=== PATIENT | male | born 1990 | race Caucasian/White ===

== ENCOUNTER 2016-10-24 21:46 | Emergency (ER) | payer SELFPAY ==
[~2016-10-24] VITALS: Ht 172.7 cm; Wt 106.4 kg
[2016-10-24 21:53] VITALS: BP 130/71
--- NOTE | 2016-10-24 22:01 | NUR ---
PT TAKEN TO BED 8
--- NOTE | 2016-10-24 22:05 | NUR ---
Dr. Chino evaluating patient at bedside.
--- NOTE | 2016-10-24 22:11 | NUR ---
X-Ray at bedside.
--- NOTE | 2016-10-24 22:11 | NUR ---
PT IS 26Y/M BIB GIRLFRIEND, PT C/O SOB X 1 MONTH OFF AND ON, PT STATES 1 OR 2 X WEEK FEELS PRESSURE ON CHEST AND SOMETIMES LIGHTHEADEDNESS. NO MED. HX., PT DENIES VOMITTING, NAUSEA. DENIES PAIN AT THIS TIME
--- NOTE | 2016-10-24 22:33 | NUR ---
Patient being evaluated by DR. ALMEIDA at bedside.
[2016-10-24] MEDS: LORazepam 1 MG TAB PO ONE ×2 (23:01→23:05)
[2016-10-24 23:18] VITALS: BP 122/65
--- NOTE | 2016-10-24 23:19 | NUR ---
Patient discharged with v/s stable. Written and verbal after care instructions given and explained. Patient alert, oriented and verbalized understanding of instructions. Ambulatory with steady gait. All questions addressed prior to discharge. ID band removed. Patient advised to follow up with PMD. Rx of ATIVAN 0.5MG PO given. Patient educated on indication of medication including possible reaction and side effects. Opportunity to ask questions provided and answered.
== END 2016-10-24 23:19 | disposition home or self-care (01) ==
LOC: MED 21:46
DX: R06.00 Dyspnea, unspecified (principal); F17.210 Nicotine dependence, cigarettes, uncomplicated; R05 Cough; R07.89 Other chest pain; R06.02 Shortness of breath; Z71.6 Tobacco abuse counseling

== ENCOUNTER 2017-09-16 00:25 | Emergency (ER) | payer MEDICAID ==
[~2017-09-16] VITALS: Ht 172.7 cm; Wt 108.9 kg
[2017-09-16 00:30] VITALS: BP 139/71
--- NOTE | 2017-09-16 00:35 | NUR ---
TO LOBBY, A/W ,CARLY,ISABEL, MERCEDES NOTED
--- NOTE | 2017-09-16 00:40 | NUR ---
AMBULATED TO ER BED 10
--- NOTE | 2017-09-16 00:55 | NUR ---
PT C/O COUGH WITH CLEAR MUCUS, SINUS PRESSURE AND DRAINAGE, SOAR THROAT, AND INCREASING RIGHT SIDE RIB PAIN WITH COUGHING X1 WEEK. LUNGS CLEAR THORUGHOUT IN BILAT LOBES. RIGHT SIDE RIB PAIN 8/10 WITH DEEP BREATHING. NO SOB. A&OX4. PT SENT TO [facility]. AND STAFF AWARE. CONTINUE TO MONITOR.
--- NOTE | 2017-09-16 01:55 | NUR ---
Patient discharged with v/s stable. Written and verbal after care instructions given and explained. Patient alert, oriented and verbalized understanding of instructions. Ambulatory with steady gait. All questions addressed prior to discharge. ID band removed. Patient advised to follow up with PMD. Rx of Philip gonzalez given. Patient educated on indication of medication including possible reaction and side effects. Opportunity to ask questions provided and answered.
[2017-09-16 01:59] VITALS: BP 127/63
== END 2017-09-16 01:55 | disposition home or self-care (01) ==
LOC: MED 00:25
DX: R05 Cough (principal)
CPT/HCPCS: 36415; 71046; 81002; 87804; 99284

== ENCOUNTER 2017-10-24 13:39 | Emergency (ER) | payer MEDICAID ==
[~2017-10-24] VITALS: Ht 172.7 cm; Wt 114.8 kg
[2017-10-24 13:42] VITALS: BP 139/86
--- NOTE | 2017-10-24 16:38 | NUR ---
PT AMBULATED TO [facility]
--- NOTE | 2017-10-24 16:45 | NUR ---
PATIENT PRESENTS TO ED WITH C/O COUGH x 6 WEEKS. PT STATES HE WAS SEEN IN [facility] ER ABOUT 3 WEEKS AGO WITH SAME S/SX.DENIES N/V/D; SKIN IS PINK/WARM/DRY; AAOX4 WITH EVEN AND STEADY GAIT;HR EVEN AND REGULAR; PT DENIES ANY FEVER AT THIS TIME; PATIENT STATES PAIN OF 6/10 AT THIS TIME;PATIENT POSITIONED FOR COMFORT;ER MD MADE AWARE OF PT STATUS.
--- NOTE | 2017-10-24 16:50 | NUR ---
DR LARA EVALUATING PT AT BEDSIDE
[2017-10-24] MEDS ORDERED: ALBUTEROL SULFATE/IPRATROPIU 3 ML SOL IH ONE (17:05)
[2017-10-24] MEDS ORDERED: cefTRIAXone 1,000 MG in LIDOCAINE 1% ***ER ONLY *** 2.1 ML IM ONE (17:05)
[2017-10-24] MEDS ORDERED: methylPREDNISolone SS 125 MG in WATER STERILE 2 ML IM ONE (17:05)
[2017-10-24] MEDS ORDERED: cefTRIAXone 1,000 MG VIAL ONE (17:31)
[2017-10-24] MEDS ORDERED: LIDOCAINE MPF 1% - **ER/OR** 5 ML ONE (17:33)
--- NOTE | 2017-10-24 17:49 | NUR ---
RT GIVING BREATHING TX TO PT.
[2017-10-24 18:16] VITALS: BP 138/79
--- NOTE | 2017-10-24 18:16 | NUR ---
Patient discharged with v/s stable. Written and verbal after care instructions given and explained. Patient alert, oriented and verbalized understanding of instructions. Ambulatory with steady gait. All questions addressed prior to discharge. ID band removed. Patient advised to follow up with PMD. Rx of AZITHROMYCIN,PROMETHAZINE AND ALBUTEROL SULFATE given. Patient educated on indication of medication including possible reaction and side effects. Opportunity to ask questions provided and answered.
== END 2017-10-24 18:16 | disposition home or self-care (01) ==
LOC: MED 13:39
DX: J45.909 Unspecified asthma, uncomplicated (principal)
CPT/HCPCS: 94640; 96372; 99284; J0696; J2001; J2930; J7620

== ENCOUNTER 2019-10-24 15:43 | Emergency (ER) | payer MEDICAID ==
[~2019-10-24] VITALS: Ht 172.7 cm; Wt 113.4 kg
[2019-10-24 15:55] VITALS: BP 116/59
[2019-10-24] MEDS ORDERED: IBUPROFEN 600 MG TAB PO ONE (16:25)
[2019-10-24] MEDS ORDERED: FLUORESCEIN OPTH STRIP 1 MG OP ONE (16:25)
[2019-10-24] MEDS ORDERED: TETRACAINE HCL/PF 0.5% OPTH 4 ML BTL OP ONE (16:25)
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
--- NOTE | 2019-10-24 17:28 | NUR ---
Pt returned from CT
[2019-10-24] MEDS ORDERED: TOMOMETER 1 DEV DEV MC ONE (17:55)
[2019-10-24] MEDS ORDERED: HYDROcodone/APAP 7.5/325 MG 1 TAB PO ONE (18:00)
--- NOTE | 2019-10-24 18:28 | NUR ---
Yarbrough at bedside examining left eye
[2019-10-24] MEDS ORDERED: MORPHINE SULFATE 5 MG/ML VIAL IM ONE (19:10)
--- NOTE | 2019-10-24 19:12 | NUR ---
Transfer of care and report given to BRITTANY Pearson
--- NOTE | 2019-10-24 19:39 | NUR ---
DX - ACUTE BLOWOUT FRACTURE OF THE LEFT ORBITAL FLOOR. PT DISCHARGED AND REFERRED TO [facility]. PT LEFT ACCOMPANIEDBY .
[2019-10-24 19:42] VITALS: BP 128/51
== END 2019-10-24 19:39 | disposition home or self-care (01) ==
LOC: MED 15:43
DX: S02.30XA Fracture of orbital floor, unspecified side, initial encounter for closed fracture (principal); J45.909 Unspecified asthma, uncomplicated; W50.0XXA Accidental hit or strike by another person, initial encounter; Y93.89 Activity, other specified; Y92.89 Other specified places as the place of occurrence of the external cause; Y99.8 Other external cause status
CPT/HCPCS: 70480; 96372; 99284; J2270

== ENCOUNTER 2019-12-05 22:57 | Inpatient (IN) | payer SELFPAY ==
[~2019-12-05] VITALS: Ht 188 cm; Wt 114.0 kg
[2019-12-05 23:02] VITALS: BP 102/52
[2019-12-05] MEDS ORDERED: PROPOFOL 1000 MG/100 ML PREMIX 100 ML IV ONE (23:08)
[2019-12-05] MEDS ORDERED: PROPOFOL 200 MG/20 ML VIAL IV ONE (23:10)
[2019-12-05] MEDS ORDERED: NACL 0.9% 1,000 ML IV ONE (23:10)
[2019-12-05] MEDS ORDERED: ETOMIDATE 20 MG/10 ML VIAL IVP ONE (23:10)
[2019-12-05 23:42] LABS: BASOPHILS % (AUTO) 0.5 % (0.0-2.0); EOSINOPHILS # (AUTO) 0.1 K/uL (0-0.4); EOSINOPHILS % (AUTO) 0.8 % (0.0-4.0); HEMATOCRIT 44.2 % (36-52); HEMOGLOBIN 15.4 g/dL (12.0-18.0); LYMPHOCYTES # (AUTO) 3.3 K/uL (2.0-11.5); LYMPHOCYTES % (AUTO) 44.7 % (20.5-51.1); MEAN CORPUSCULAR HEMOGLOBIN 35 pg (27-31); MEAN CORPUSCULAR HGB CONC 35 g/dL (33-37); MONOCYTES # (AUTO) 0.6 K/uL (0.8-1.0); MONOCYTES % (AUTO) 8.2 % (1.7-9.3); NEUTROPHILS # (AUTO) 3.3 K/uL (1.8-7.7); NEUTROPHILS % (AUTO) 45.8 % (42.2-75.2); PLATELET COUNT (AUTO) 313 K/uL (140-450); RED BLOOD CELL COUNT(AUTO) 4.46 MIL/uL (4.20-6.10); RED CELL DISTRIBUTION WIDTH 12.6 % (11.6-13.7); WHITE BLOOD COUNT (AUTO) 7.3 K/uL (4.8-10.8)
[2019-12-05] MEDS ORDERED: MORPHINE SULFATE 2 MG/ML SYR IVP PRN (23:45)
[2019-12-05] MEDS ORDERED: DOCUSATE SODIUM 100 MG GELCAP PO PRN (23:45)
[2019-12-05] MEDS ORDERED: ONDANSETRON 4 MG/2 ML VIAL IM/IVP PRN (23:45)
[2019-12-05] MEDS ORDERED: ACETAMINOPHEN 325 MG TAB PO PRN (23:45)
[2019-12-05] MEDS ORDERED: NACL 0.9% IV ONE (23:50)
[2019-12-05] MEDS ORDERED: PIPERACILLIN/TAZOBACTAM 3.375 GM in DEXTROSE 5% 50 ML IV ONE (23:55)
[2019-12-05] MEDS ORDERED: LEVOFLOXACIN 750 MG/D5W PREMIX 150 ML IV ONE (23:55)
[2019-12-05 23:57] LABS: ALBUMIN 3.4 g/dL (3.4-5.0); ANION GAP 8.6 (8-16); CARBON DIOXIDE 33.2 mmol/L (21-32); CREATININE 1.1 mg/dL (0.6-1.3); POTASSIUM 3.8 mmol/L (3.5-5.1); TOTAL BILIRUBIN 0.5 mg/dL (0.0-1.0)
[2019-12-06] VITALS (31 sets, daily range): BP systolic 90–134; BP diastolic 54–117
[2019-12-06 00:20] LABS: PROTHROMBIN TIME 9.8 secs (10.8-13.4)
[2019-12-06 00:33] LABS: APPEARANCE,URINE CLEAR (CLEAR); BILIRUBIN,URINE NEGATIVE (NEGATIVE); BLOOD, URINE NEGATIVE (NEGATIVE); COLOR,URINE YELLOW (YELLOW); LEUKOCYTE ESTERASE ,URINE NEGATIVE (NEGATIVE); NITRITE, URINE NEGATIVE (NEGATIVE); PH,URINE 7.5 (5.0-9.0); UGLUCOSE NEGATIVE (NEGATIVE)
[2019-12-06 00:53] LABS: BARBITURATE, URINE NEGATIVE ng/ml (NEG <=200); BENZODIAZEPINE, URINE POSITIVE ng/mL (NEG <=200); CANNABINOID, URINE POSITIVE ng/mL (NEG <=50); COCAINE, URINE NEGATIVE ng/mL (NEG <=300); PHENCYCLIDINE SCREEN,URINE NEGATIVE ng/mL (NEG <=25)
[2019-12-06 00:54] LABS: OPIATE, URINE POSITIVE ng/mL (NEG <=2000)
[2019-12-06 01:01] LABS: MAGNESIUM 2.2 mg/dL (1.8-2.4); PHOSPHORUS 2.3 mg/dL (2.5-4.9)
[2019-12-06 01:02] LABS: THYROID STIMULATING HORMONE 4.6 uIU/mL (0.34-3.74)
[2019-12-06] MEDS ORDERED: SODIUM PHOS / POTASSIUM PHOS 1 PKT PDR NG SCH (01:15)
[2019-12-06] MEDS ORDERED: MULTIVITAMIN-12 10 ML, THIAMINE 100 MG, MAGNESIUM SULFATE 50% 2,000 MG, FOLIC ACID 1 MG... IV SCH ×5 (02:05)
[2019-12-06] MEDS ORDERED: PROPOFOL 1000 MG/100 ML PREMIX 100 ML IV PRN (02:30)
[2019-12-06] MEDS: DEXT 5% /NACL 0.9% 1,000 ML IV SCH ×2 (02:32→02:34)
[2019-12-06] MEDS ORDERED: DEXT 5% / NACL 0.45% 1,000 ML IV SCH (02:40)
[2019-12-06] MEDS ORDERED: PIPERACILLIN/TAZOBACTAM 3.375 GM VIAL IV ONE (05:13)
[2019-12-06] MEDS: PIPERACILLIN/TAZOBACTAM 3.375 GM in DEXTROSE 5% 50 ML IV SCH ×3 (05:19→17:53)
[2019-12-06 06:39] LABS: BASOPHILS # (AUTO) 0.1 K/uL (0.00-0.22); BASOPHILS % (AUTO) 1.1 % (0.0-2.0); EOSINOPHILS % (AUTO) 0.4 % (0.0-4.0); HEMATOCRIT 41.4 % (36-52); HEMOGLOBIN 14.4 g/dL (12.0-18.0); LYMPHOCYTES # (AUTO) 2.3 K/uL (2.0-11.5); LYMPHOCYTES % (AUTO) 46.8 % (20.5-51.1); MEAN CORPUSCULAR HEMOGLOBIN 34 pg (27-31); MEAN CORPUSCULAR HGB CONC 35 g/dL (33-37); MEAN CORPUSCULAR VOLUME 98.7 fL (80-94); MONOCYTES # (AUTO) 0.5 K/uL (0.8-1.0); NEUTROPHILS # (AUTO) 2.1 K/uL (1.8-7.7); NEUTROPHILS % (AUTO) 42.7 % (42.2-75.2); PLATELET COUNT (AUTO) 301 K/uL (140-450); RED BLOOD CELL COUNT(AUTO) 4.19 MIL/uL (4.20-6.10); RED CELL DISTRIBUTION WIDTH 12.6 % (11.6-13.7)
[2019-12-06 06:41] LABS: ANION GAP 10.5 (8-16); CREATININE 0.8 mg/dL (0.6-1.3); POTASSIUM 3.5 mmol/L (3.5-5.1)
[2019-12-06 06:55] LABS: CHOL/HDL RATIO 6.9 (1-4.5)
[2019-12-06 07:27] LABS: ACETAMINOPHEN < 0.5 ug/ml (10-30); SALICYLATE < 2.8 mg/dL (2.8-20.0)
[2019-12-06] MEDS ORDERED: PANTOPRAZOLE 40 MG INJ VIAL IVP SCH (09:00)
== END 2019-12-06 21:50 | disposition left against medical advice (07) | DRG 917 ==
LOC: MED 22:57 → MIC 23:49 → MTU 12-06 21:30
PROVIDERS: ADMIT General Practice; ATTEND General Practice
PROC: 0BH17EZ Insertion of Endotracheal Airway into Trachea, Via Natural or Artificial Opening (ICD-10-PCS; principal; 2019-12-05)
PROC: 5A1935Z Respiratory Ventilation, Less than 24 Consecutive Hours (ICD-10-PCS; 2019-12-05)
DX: T42.4X1A Poisoning by benzodiazepines, accidental (unintentional), initial encounter (principal); J96.01 Acute respiratory failure with hypoxia; J69.0 Pneumonitis due to inhalation of food and vomit; G92 Toxic encephalopathy; F10.19 Alcohol abuse with unspecified alcohol-induced disorder; T51.0X1A Toxic effect of ethanol, accidental (unintentional), initial encounter; E66.9 Obesity, unspecified; Z68.32 Body mass index [BMI] 32.0-32.9, adult; E83.39 Other disorders of phosphorus metabolism; E02 Subclinical iodine-deficiency hypothyroidism
CPT/HCPCS: 31500; 36415; 36600; 71045; 80048; 80053; 80305; 81003; 82803; 83605; 83690; 83735; 84100; 84443; 85025; 85610; 85730; 87040; 87081; 87205; 89220; 93005; 94002; 96360; 99291; C9113; G0480; G0482; J2543; J2704; J7042; J7060; Q0092

== ENCOUNTER 2021-08-25 09:08 | Emergency (ER) | payer OTHER ==
[~2021-08-25] VITALS: Ht 172.7 cm; Wt 108.9 kg
[2021-08-25 09:21] VITALS: BP 208/108
--- NOTE | 2021-08-25 11:04 | NUR ---
Pt ambulated to bed 08 steady/even gait.
--- NOTE | 2021-08-25 11:05 | NUR ---
31 y/o M c/o bilateral hand rash and lesions x 3-4 days. Patient A&Ox4, ambulatory, states at home when he noticed hand rash. Pt states symptoms began as dry/itchiness in which he began scratching his hands. Blisters noted to generalized hands. Pt reports 10/10, burning/constant, non-radiating pain. States applying Neosporin and hydrogen peroxide without relief. Bed locked in lowest position, side rails x 1. PMH/Sx/Meds: Denies NKDA
--- NOTE | 2021-08-25 11:44 | NUR ---
Dr. Chen is evaluating pt at bedside
[2021-08-25 11:45] VITALS: BP 126/75
[2021-08-25] MEDS ORDERED: KETOROLAC 30 MG/ML VIAL IM ONE (11:45)
--- NOTE | 2021-08-25 11:45 | NUR ---
BP taken to Right upper arm 125/76. Dr. Chen made aware
[2021-08-25] MEDS ORDERED: AMOX-1000 PO (11:48)
== END 2021-08-25 12:34 | disposition home or self-care (01) ==
LOC: MED 09:08
DX: R21 Rash and other nonspecific skin eruption (principal); J45.909 Unspecified asthma, uncomplicated
CPT/HCPCS: 96372; 99283; J1885